=== PATIENT | male | born 1930 | race Caucasian/White ===

== ENCOUNTER 2016-03-20 03:52 | Emergency (ER) | payer MEDICARE, BC ==
--- NOTE | 2016-03-20 04:38 | ERNOTE ---
Abdominal HPI - Narrative Date of Service: 03/20/16 - General Chief Complaint: Abdominal Pain Time Seen by Provider: 03/20/16 04:24 Source: patient Exam Limitations: no limitations - POOR HISTORIAN - Immun/Allergies/Home Medications Immunizatons: IMMUNIZATION HX Immunizations Up to Date Yes History of Influenza Vaccine No Hx Pneumococcal Vaccination No Allergies/Adverse Reactions: Allergies No Known Allergies Allergy (Verified 03/20/16 04:05) Home Medications: HOME MEDICATIONS Amiodarone HCl [Pacerone] 200 mg PO Q2D 07/16/12 [Last Taken Unknown] Levothyroxine Sodium [Synthroid] 50 mcg PO DAILY 07/16/12 [Last Taken 07/16/12 0700] Bisacodyl [Laxative] 5 mg PO DAILY 11/07/15 [Last Taken Unknown] LORazepam [Ativan] 0.5 mg PO DAILY 11/07/15 [Last Taken Unknown] Loratadine [Claritin] 10 mg PO DAILY 11/07/15 [Last Taken Unknown] Lurasidone HCl [Latuda] 10 mg PO DAILY 11/07/15 [Last Taken Unknown] - History of Present Illness Narrative: 85-year-old with a known large ventral and umbilical hernia states that it has been hurting since about 11:00 last evening. He denies nausea vomiting diarrhea fever or other constitutional signs or symptoms Review of Systems - Review of Systems Constitutional: Present: no symptoms reported EYE: Present: no symptoms reported ENT: Present: no symptoms reported Respiratory: Present: no symptoms reported Cardiology: Present: no symptoms reported Gastrointestinal/Abdominal: Present: See HPI Genitourinary: Present: no symptoms reported Musculoskeletal: Present: no symptoms reported Skin: Present: no symptoms reported Neurological: Present: no symptoms reported Endocrine: Present: no symptoms reported Hematologic/Lymphatic: Present: no symptoms reported Psych: Present: no symptoms reported - Patient's Past Medical History Patient History - Medical: Depression, Hypothyroidism Patient History - Cardiac/Respiratory: Other - on amiodarone Patient History - Cancer: No Hx of Cancer Patient History - Surgical Procedures: Colon Resection, T & A - Social History Living Situations: home Smoking Status: Never smoker Alcohol Use: none Drug Use: none Physical Exam - Physical Exam General Appearance: Present: alert, mild distress Eye Exam: Normal inspection: bilateral, PERRL: bilateral Ears, Nose, Throat: Present: normal ENT inspection, hearing grossly normal, normal pharynx Neck: Present: normal inspection, nontender Respiratory: Present: no respiratory distress, normal breath sounds, no accessory muscle use, chest nontender, lungs clear Cardiovascular/Chest: Present: regular rate, rhythm, no murmur, normal peripheral pulses Gastrointestinal/Abdominal: Present: normal bowel sounds, nontender, soft, no organomegaly, tenderness - minimal tenderness to palpation of hernias. They are not taught and are reducible, hernia - very large LRQ abdominal hernia which is soft and reducible. Umbilical hernea also reducible Rectal Exam: Present: deferred Back Exam: Present: normal inspection, normal range of motion, no CVA tenderness , no vertebral tenderness Extremity Exam: Present: normal inspection, non-tender, no edema, normal range of motion Neurological Exam: Present: alert, oriented, normal mood/affect, no motor/ sensory deficits Skin Exam: Present: normal color, warm/dry Lymphatic Exam: Present: no adenopathy ED Progress - Results and Orders Patient's Lab Results:: I have reviewed the patient's lab results. Results and Orders: CBC and chemistries unremarkable - Vital Signs Patient's Vital Signs:: I have reviewed the patient's vital signs. Vital Signs: Vital Signs 03/20/16 04:00 Temperature 36.6 C Pulse Rate 48 L Respiratory 18 Rate Blood Pressure 138/74 O2 Sat by Pulse 99 Oximetry - X-Ray X-Ray #1 X-Ray: abdomen - nonspecific gas patterns with no evidence of obstruction - Progress/Reassessment Chief Complaint: Abdominal Pain Plan - Plan Plan: Lab and x-ray essentially unremarkable but patient continues to have pain in the area of the large ventral hernia and he has developed nausea and vomiting. Patient was given fluids IV Zofran and we will move ahead with CT of the abdomen with contrast 8:25 AM patient is more comfortable and CT report shows the large ventral hernia but no evidence of obstruction. We'll have the patient follow up with his primary care provider to discuss the need for surgical repair of this large hernia that is now more symptomatic Departure - Departure Clinical Impression: Abdominal hernia Qualifiers: Hernia type: ventral Obstruction and gangrene presence: without obstruction or gangrene Qualified Code(s): K43.9 - Ventral hernia without obstruction or gangrene Umbilical hernia Qualifiers: Obstruction and gangrene presence: without obstruction or gangrene Qualified Code(s): K42.9 - Umbilical hernia without obstruction or gangrene Disposition: Home self-care Condition: Fair Instructions: Ventral Hernia Additional Instructions: Make an appointment with your doctor to discuss repair of the large abdominal hernia which is now symptomatic Referrals: Erik Medina MD [Primary Care Provider] -
[2016-03-20 04:53] LABS: Hematocrit 37.7 % (42.0-52.0); Hemoglobin 12.6 gm/dL (13.5-18.0); Mean Cell Volume 94.7 fl (78-100); Mean Corpuscular Hemoglobin 31.7 pg (27-31); Mean Corpuscular Hgb Conc 33.4 g/dl (32-36); Mean Platelet Volume 9.8 fl (6.0-9.5); Neutrophil # 6.4 K/mm3 (1.3-6.0); Platelet Count 201 K/mm3 (150-450); Red Blood Count 3.98 M/mm3 (4.7-6.0); Red Cell Distribution Width 13.3 % (11.5-14.0); White Blood Count 8.2 K/mm3 (4.0-10.5)
[2016-03-20] MEDS ORDERED: ONDANSETRON HCL/PF 2 MG/ML VIAL ONE (04:57)
[2016-03-20] MEDS ORDERED: ONDANSETRON HCL/PF 2 MG/ML VIAL IV ONE (05:04)
[2016-03-20] MEDS ORDERED: NORMAL SALINE 1,000 ML IV ONE (05:05)
[2016-03-20 05:07] LABS: Albumin * 3.6 gm/dl (3.4-5.0); Anion Gap 14.5 mmol/L (6.8-13.8); BUN/Creatinine Ratio 21.7 (9.0-21.6); Bilirubin, Total 0.2 mg/dL (0.0-1.1); Ca. Corrected For Albumin 8.6 mg/dL (8.4-10.2); Calcium * 8.6 mg/dL (7.9-10.9); Carbon Dioxide 27.4 mmol/L (24-32.6); Potassium 3.9 mmol/L (3.4-4.6); Total Protein 6.5 gm/dL (6.2-8.2)
[2016-03-20] MEDS ORDERED: DIATRIZOATE MEGLU/DIATRIZO SOD 30 ML BTL ONE (05:33)
[2016-03-20] MEDS ORDERED: MORPHINE SULFATE 2 MG/ML DISP.SYRIN IV ONE (05:36)
[2016-03-20] MEDS ORDERED: DIATRIZOATE MEGLU/DIATRIZO SOD 30 ML BTL PO ONE (05:37)
[2016-03-20] MEDS ORDERED: MORPHINE SULFATE 2 MG/ML DISP.SYRIN ONE (05:42)
[2016-03-20 08:35] VITALS: BP 171/84
== END 2016-03-20 08:40 | disposition home or self-care (01) ==
LOC: ER 03:52
DX: K43.9 Ventral hernia without obstruction or gangrene (principal); K42.9 Umbilical hernia without obstruction or gangrene

== ENCOUNTER 2020-07-30 20:11 | Observation (INO) ==
[2020-07-30] MEDS ORDERED: ACETAMINOPHEN 1,000 MG/100 ML BTL IV ONE (20:23)
--- NOTE | 2020-07-30 20:29 | ERNOTE ---
Medical Problem HPI - Narrative Date of Service: 07/30/20 - General Chief Complaint: Fever Time Seen by Provider: 07/30/20 20:19 Source: patient, family Exam Limitations: clinical condition - Immun/Allergies/Home Medications Immunizations: IMMUNIZATION HX Immunizations Up to Date Yes History of Influenza Vaccine Yes Hx Pneumococcal Vaccination No Allergies/Adverse Reactions: Allergies No Known Allergies Allergy (Verified 07/30/20 17:37) Home Medications: HOME MEDICATIONS cholecalciferol (vitamin D3) 50 mcg (2,000 unit) capsule 2,000 unit PO DAILY 01/03/18 [Last Taken Unknown] cyanocobalamin (vitamin B-12) 1,000 mcg tablet 1,000 mcg PO DAILY 01/03/18 [Last Taken Unknown] polyethylene glycol 3350 17 gram/dose oral powder 17 g PO DAILY g 01/03/18 [Last Taken Unknown] Durable Medical Equipment See Dose Instructions .ROUTE .MEDSUPPLY #1 ea 08/21/18 [Last Taken Unknown] Durable Medical Equipment See Dose Instructions .ROUTE .MEDSUPPLY #1 ea 08/21/18 [Last Taken Unknown] multivitamin with minerals 1 tab PO DAILY 08/27/18 [Last Taken Unknown] levothyroxine 75 mcg tablet 75 mcg PO DAILY #90 tab 05/26/20 [Last Taken Unknown] sulfamethoxazole 800 mg-trimethoprim 160 mg tablet 1 tab PO BID 10 Days #20 tab 07/30/20 [Last Taken Unknown] Amiodarone HCl See Rx Instructions PO 3XW 07/31/20 [Last Taken Unknown] Tamsulosin HCl [Flomax] 0.4 mg PO DAILY 07/31/20 [Last Taken Unknown] - Pain Score Pain Score #1 Pain Score: 6 - History of Present History Narrative: The patient is an 89-year-old male who presents via POV for right hand cellulitis which has been present since this morning. There are associated symptoms of increased lethargy and fever. The patient reports pain to right hand, /. There are no alleviating factors. There are aggravating factors of activity and hand use. Previous treatments have included: Bactrim without improvement. The past medical history includes: AFib, BPH, hypothyroid and GEE. Patient social history is positive for current tobacco use. The patient has had no known ill contacts. Patient presented to the [facility] today for evaluation of redness to his right hand. Patient was diagnosed with cellulitis and given prescription for Bactrim which patient has taken 1 dose today. Family noted patient to have increased lethargy as well as shaking so they brought him to the ER for further evaluation. Patient upon arrival is noted to have elevated fever. Review of Systems - Review of Systems Constitutional: Present: fever, chills, fatigue EYE: Present: no symptoms reported ENT: Present: no symptoms reported. Absent: ear pain, nasal drainage, sore throat Respiratory: Present: no symptoms reported. Absent: shortness of breath, cough Cardiology: Present: no symptoms reported. Absent: chest pain Gastrointestinal/Abdominal: Present: no symptoms reported. Absent: nausea, vomiting, diarrhea Genitourinary: Present: no symptoms reported. Absent: dysuria Musculoskeletal: Present: joint pain Skin: Present: lesions Neurological: Present: no symptoms reported Medical History (Last Reviewed 07/30/20 @ 20:26 by ELROY Guerrier) Impaired cognition (Acute) Cough (Acute) BPH (benign prostatic hyperplasia) (Chronic) Abnormal PSA (Acute) PSA 4.33 Dependent edema (Acute) Medicare annual wellness visit, subsequent (Acute) History of pneumonia as indication for 23-polyvalent pneumococcal polysaccharide vaccine (Acute) Ventral hernia (Resolved) Onset Date: Unknown GEE (obstructive sleep apnea) (Chronic) Onset Date: Unknown Hypothyroidism (Chronic) Onset Date: Unknown BPH (benign prostatic hyperplasia) (Chronic) Onset Date: Unknown Vitamin B12 deficiency (Chronic) Onset Date: Unknown Age-related macular degeneration (Chronic) Onset Date: Unknown Atrial fibrillation (Chronic) Onset Date: Unknown Orthostatic hypotension (Acute) Near syncope (Acute) Abdominal hernia (Acute) Umbilical hernia (Acute) Surgical History: Surgical History (Last Reviewed 07/30/20 @ 20:26 by ELROY Guerrier) History of colon resection Onset Date: ~2012 History of tonsillectomy Onset Date: Unknown Family History: Family History (Last Reviewed 07/30/20 @ 20:26 by ELROY Guerrier) Father , age 65 Cancer unknown type Heart disease Mother , age 98 Old age Social History: (Last Reviewed 07/30/20 @ 20:27 by ELROY Guerrier) Social History: senior care: No Marital status: household members: spouse current occupational status: retired Highest level of school completed/degree received: high school graduate Service: No Tobacco: Smoking Status: Current every day smoker second hand exposure: Yes Alcohol: alcohol intake: current Substance Use: substance use type: does not use Dietary Habits: caffeine: Yes Exercise: Physical activity functional status: normal ROM and activity Physical Exam - Physical Exam General Appearance: Present: wd/wn, mild distress, lethargic Head Exam: Present: normal inspection, no evidence of injury Eye Exam: Normal inspection: bilateral Neck: Present: normal inspection Respiratory: Present: no respiratory distress, normal breath sounds, no accessory muscle use, lungs clear Cardiovascular/Chest: Present: regular rate, rhythm, no murmur Extremity Exam: Present: normal range of motion. Absent: bony tenderness Neurological Exam: Present: alert, oriented, normal mood/affect, no motor/sensory deficits Skin Exam: Present: warm/dry, other - erythema to dorsal right hand extension from dorsal thumb to wrist Progress - Date and Time Seen: Date and Time: 07/30/20 21:39 Patient fever improved but remains to be lethargic. Patient does awaken easily with stimuli. After joint discussion with family they would feel more comfortable with patient was admitted for continued observation due to elevated fever and increased weakness. Case was reviewed with and will admit for observation for cellulitis. Patient agrees with plan of care. - Results and Orders Patient's Lab Results:: I have reviewed the patient's lab results. - Vital Signs Patient's Vital Signs:: I have reviewed the patient's vital signs. Vital Signs: Vital Signs 07/30/20 20:18 Temperature 39.8 C H Pulse Rate 96 Respiratory Rate 18 Blood Pressure 172/73 H O2 Sat by Pulse Oximetry 97 - Progress/Reassessment Chief Complaint: Fever Progress:: Improved Departure Clinical Impression: Cellulitis of hand, right - Departure Disposition: Still a patient Condition: Good
[2020-07-30 20:49] LABS: Hematocrit 40.6 % (42.0-52.0); Hemoglobin 12.9 gm/dL (13.5-18.0); Mean Cell Volume 96.2 fl (78-100); Mean Corpuscular Hemoglobin 30.6 pg (27-31); Mean Corpuscular Hgb Conc 31.8 g/dl (32-36); Neutrophil # 9.2 K/mm3 (1.3-6.0); Neutrophil % 84.2 % (42-75.0); Platelet Count 166 K/mm3 (150-450); Red Blood Count 4.22 M/mm3 (4.7-6.0); Red Cell Distribution Width 13.2 % (11.5-14.0)
[2020-07-30 20:58] LABS: Albumin * 3.5 gm/dl (3.4-5.0); BUN/Creatinine Ratio 15.3 (9.0-21.6); CRP 5.5 mg/dL (0.0-0.9); Ca. Corrected For Albumin 8.4 mg/dL (8.4-10.2); Calcium * 8.3 mg/dL (7.9-10.9); Carbon Dioxide 26.7 mmol/L (24-32.6); Potassium 3.7 mmol/L (3.4-4.6); Total Protein 6.5 gm/dL (6.2-8.2)
[2020-07-30] MEDS ORDERED: cefTRIAXone SODIUM 1,000 MG/100 ML BAG IV ONE (21:03)
[2020-07-31] MEDS ORDERED: CYANOCOBALAMIN 1,000 MCG TABLET PO SCH (09:30)
[2020-07-31] MEDS ORDERED: MULTIVITAMIN/IRON/FOLIC ACID 1 TAB TABLET PO SCH (09:30)
--- NOTE | 2020-07-31 09:37 | HPDIS ---
Chief Complaint - Chief Complaint Date of Service: 07/31/20 Time of Service: 09:00 Chief Complaint: Fever History of Present Illness: 89-year-old male with a past medical history of atrial fibrillation, BPH, macular degeneration, GEE on CPAP, umbilical hernia, hypothyroidism, impaired cognition, B12 deficiency presents from home with complaints of weakness and lethargy. He had been seen in the walk-in clinic yesterday for right hand cellulitis and was started on Bactrim. Patient returned home and family stated that he was more lethargic and weak and brought him to the emergency room. He had only taken 1 dose of the Bactrim prior to presenting to the ER. In the ER he was found to have a fever with temperature of 39.8 C, mild elevation in WBCs of 11, rest of lab work was unremarkable. He was started on ceftriaxone IV. He was admitted for further management of cellulitis. Medical History (Last Reviewed 07/30/20 @ 20:41 by Kaykay Gray RN) Impaired cognition (Acute) Cough (Acute) BPH (benign prostatic hyperplasia) (Chronic) Abnormal PSA (Acute) PSA 4.33 Dependent edema (Acute) Medicare annual wellness visit, subsequent (Acute) History of pneumonia as indication for 23-polyvalent pneumococcal polysaccharide vaccine (Acute) Ventral hernia (Resolved) Onset Date: Unknown GEE (obstructive sleep apnea) (Chronic) Onset Date: Unknown Hypothyroidism (Chronic) Onset Date: Unknown BPH (benign prostatic hyperplasia) (Chronic) Onset Date: Unknown Vitamin B12 deficiency (Chronic) Onset Date: Unknown Age-related macular degeneration (Chronic) Onset Date: Unknown Atrial fibrillation (Chronic) Onset Date: Unknown Orthostatic hypotension (Acute) Near syncope (Acute) Abdominal hernia (Acute) Umbilical hernia (Acute) Surgical History: Surgical History (Last Reviewed 07/30/20 @ 20:41 by Kaykay Gray RN) History of colon resection Onset Date: ~2012 History of tonsillectomy Onset Date: Unknown Family History: Family History (Last Reviewed 07/30/20 @ 20:41 by Kaykay Gray RN) Father , age 65 Heart disease Cancer unknown type Mother , age 98 Old age Social History: (Last Reviewed 07/30/20 @ 20:41 by Kaykay Gray RN) Social History: group home: No Marital status: household members: spouse current occupational status: retired Highest level of school completed/degree received: high school graduate Service: No Tobacco: Smoking Status: Current every day smoker second hand exposure: Yes Alcohol: alcohol intake: current Substance Use: substance use type: does not use Dietary Habits: caffeine: Yes Exercise: Physical activity functional status: normal ROM and activity Review Of Systems (GEN) - Review of Systems Generalized/Overall Review: Present: Fever Cardiac: Absent: Chest Pain Abdominal: Absent: Abdominal Pain Skin: Present: Other - Erythema over right hand and forearm. Mildly edematous and tender to palpation Misc: All systems neg except as marked Immunizations: IMMUNIZATION HX Immunizations Up to Date Yes History of Influenza Vaccine Yes Hx Pneumococcal Vaccination No Allergies/Adverse Reactions: Allergies Allergy/AdvReac Type Severity Reaction Status Date / Time No Known Allergies Allergy Verified 07/30/20 17:37 Home Medications: HOME MEDICATIONS cholecalciferol (vitamin D3) 50 mcg (2,000 unit) capsule 2,000 unit PO DAILY 01/03/18 [Last Taken Unknown] cyanocobalamin (vitamin B-12) 1,000 mcg tablet 1,000 mcg PO DAILY 01/03/18 [Last Taken Unknown] polyethylene glycol 3350 17 gram/dose oral powder 17 g PO DAILY g 01/03/18 [Last Taken Unknown] Durable Medical Equipment See Dose Instructions .ROUTE .MEDSUPPLY #1 ea 08/21/18 [Last Taken Unknown] Durable Medical Equipment See Dose Instructions .ROUTE .MEDSUPPLY #1 ea 08/21/18 [Last Taken Unknown] multivitamin with minerals 1 tab PO DAILY 08/27/18 [Last Taken Unknown] levothyroxine 75 mcg tablet 75 mcg PO DAILY #90 tab 05/26/20 [Last Taken Unknown] sulfamethoxazole 800 mg-trimethoprim 160 mg tablet 1 tab PO BID 10 Days #20 tab 07/30/20 [Last Taken Unknown] Amiodarone HCl See Rx Instructions PO 3XW 07/31/20 [Last Taken Unknown] Tamsulosin HCl [Flomax] 0.4 mg PO DAILY 07/31/20 [Last Taken Unknown] Exam - Exam Vital Signs: Vital Signs - Last Taken Temp 37.9 C 07/31/20 06:58 Pulse 70 07/31/20 06:58 Resp 16 07/31/20 06:58 BP 100/54 07/31/20 06:58 Pulse Ox 95 07/31/20 08:47 Constitutional: Present: Alert, Cooperative, Well developed, Well nourished, No distress, Elderly ENT Exam: Present: hard of hearing, dry mucous membranes Eye Exam: bilateral eye: EOMI Neck: Present: non-tender, supple. Absent: lymphadenopathy (R), lymphadenopathy (L) Abdomen: Present: Normal bowel sounds, soft, nontender, obese, other - Umbilical hernia, nontender, reducible Extremity: Present: non-tender, pedal edema - Trace pitting edema in right lower extremity Skin Exam: Present: other - Erythema over right hand and forearm. Mildly e dematous and tender to palpation Neurologic: Present: alert, normal mood/affect, oriented x 3 Appearance: Present: appropriate appearance, appropriate insight Eye contact: Present: cooperative Thoughts: Present: normal thought pattern, normal mood /affect Diagnostic Studies: Abnormal Lab Results 07/30/20 07/30/20 Range/Units 20:34 20:34 WBC 11.0 H (4.0-10.5) K/mm3 RBC 4.22 L (4.7-6.0) M/mm3 Hgb 12.9 L (13.5-18.0) gm/dL Hct 40.6 L (42.0-52.0) % MCHC 31.8 L (32-36) g/dl Immature Gran % (Auto) 0.60 H (0.001-0.429) % Immature Gran # (Auto) 0.07 H (0.000-0.0310) K/mm3 Neutrophils % 84.2 H (42-75.0) % Lymphocytes % 8.4 L (20-51) % Neutrophils # 9.2 H (1.3-6.0) K/mm3 Lymphocytes # 0.92 L (1.5-3.5) k/mm3 Anion Gap 14.0 H (6.8-13.8) mmol/L Random Glucose 118 H (70-110) mg/dL C-Reactive Prot, Quant 5.5 H (0.0-0.9) mg/dL Laboratory Results WBC 11.0 K/mm3 (4.0-10.5) H 07/30/20 20:34 RBC 4.22 M/mm3 (4.7-6.0) L 07/30/20 20:34 Hgb 12.9 gm/dL (13.5-18.0) L 07/30/20 20:34 Hct 40.6 % (42.0-52.0) L 07/30/20 20:34 MCV 96.2 fl (78-100) 07/30/20 20:34 MCH 30.6 pg (27-31) 07/30/20 20:34 MCHC 31.8 g/dl (32-36) L 07/30/20 20:34 RDW 13.2 % (11.5-14.0) 07/30/20 20:34 Plt Count 166 K/mm3 (150-450) 07/30/20 20:34 MPV 10.0 fl (8-11.3) 07/30/20 20:34 Immature Gran % (Auto) 0.60 % (0.001-0.429) H 07/30/20 20:34 Immature Gran # (Auto) 0.07 K/mm3 (0.000-0.0310) H 07/30/20 20:34 Neutrophils % 84.2 % (42-75.0) H 07/30/20 20:34 Lymphocytes % 8.4 % (20-51) L 07/30/20 20:34 Monocytes % 6.3 % (0.0-9) 07/30/20 20: Eosinophils % 0.1 % (0.0-3.0) 07/30/20 20: Basophils % 0.4 % (0.0-1.0) 07/30/20 20:34 Nucleated RBC % 0.0 k/mm3 (0-1) 07/30/20 20: Neutrophils # 9.2 K/mm3 (1.3-6.0) H 07/30/20 20:34 Lymphocytes # 0.92 k/mm3 (1.5-3.5) L 07/30/20 20: Monocytes # 0.7 k/mm3 (0.0-1.0) 07/30/20 20: Eosinophils # 0.0 k/mm3 (0.0-0.7) 07/30/20 20:34 Absolute Basophils 0.0 k/mm3 (0.0-0.1) 07/30/20 20:34 Sodium 140 mmol/L (132-142) 07/30/20 20:34 Plasma Sodium 140 mmol/L (130-142) 07/30/20 20:34 Potassium 3.7 mmol/L (3.4-4.6) 07/30/20 20:34 Chloride 103 mmol/L (97-106) 07/30/20 20:34 Carbon Dioxide 26.7 mmol/L (24-32.6) 07/30/20 20:34 Anion Gap 14.0 mmol/L (6.8-13.8) H 07/30/20 20:34 BUN 18 mg/dL (6-23) 07/30/20 20:34 Creatinine 1.18 mg/dL (0.4-1.4) 07/30/20 20:34 Est GFR (Non-Af Amer) 62 mL/min (60-130) 07/30/20 20:34 BUN/Creatinine Ratio 15.3 (9.0-21.6) 07/30/20 20:34 Random Glucose 118 mg/dL (70-110) H 07/30/20 20:34 Lactic Acid, Venous 1.8 mmol/L (0.4-2.0) 07/30/20 20:34 Calcium 8.3 mg/dL (7.9-10.9) 07/30/20 20:34 Calcium Adj for Albumin 8.4 mg/dL (8.4-10.2) 07/30/20 20:34 Total Bilirubin 1.0 mg/dL (0.0-1.1) 07/30/20 20:34 AST 16 U/L (0-48) 07/30/20 20:34 ALT 20 U/L (19-67) 07/30/20 20:34 Alkaline Phosphatase 75 U/L (50-170) 07/30/20 20:34 C-Reactive Prot, Quant 5.5 mg/dL (0.0-0.9) H 07/30/20 20:34 Total Protein 6.5 gm/dL (6.2-8.2) 07/30/20 20:34 Albumin 3.5 gm/dl (3.4-5.0) 07/30/20 20:34 SARS-CoV-2 (PCR) Not detected (NotDetected) 07/30/20 21:37 Assessment/Plan - Narrative Narrative: 89-year-old male with a past medical history of atrial fibrillation, BPH, macular degeneration, GEE on CPAP, umbilical hernia, hypothyroidism, impaired cognition, B12 deficiency presents from home with complaints of weakness and lethargy. He had been seen in the walk-in clinic yesterday for right hand cellulitis and was started on Bactrim. Patient returned home and family stated that he was more lethargic and weak and brought him to the emergency room. He had only taken 1 dose of the Bactrim prior to presenting to the ER. In the ER he was found to have a fever with temperature of 39.8 C, mild elevation in WBCs of 11, rest of lab work was unremarkable. He was started on ceftriaxone IV. He was admitted for further management of cellulitis. He is afebrile this morning. The erythema on his right upper extremity is diminished and not spreading. His right hand is mildly tender to palpation. He is alert and oriented x3. He is hard of hearing and does not have his hearing aids in still communicating is little difficult. I will order physical therapy to evaluate his gait today. If he does well with physical therapy he will be discharged later today on oral Bactrim. He can follow-up with his primary care physician in the next 1 to 2 weeks. Plan #1 transition to oral Bactrim #2 physical therapy #3 resume home medications for comorbidities #4 discharge planning - Assessment/Plan (1) Cellulitis of hand, right Problem: Acute (2) Impaired cognition Problem: Chronic (3) GEE (obstructive sleep apnea) Problem: Chronic (4) Hypothyroidism Problem: Chronic Qualifiers: Hypothyroidism type: acquired Qualified Code(s): E03.9 - Hypothyroidism, unspecified (5) BPH (benign prostatic hyperplasia) Problem: Chronic Qualifiers: Lower urinary tract symptom presence: symptoms present Lower urinary tract symptom detail: weak urinary stream Qualified Code(s): N40.1 - Benign prostatic hyperplasia with lower urinary tract symptoms; R39.12 - Poor urinary stream (6) Vitamin B12 deficiency Problem: Chronic (7) Atrial fibrillation Problem: Chronic Qualifiers: Atrial fibrillation type: longstanding persistent Qualified Code(s): I48.11 - Longstanding persistent atrial fibrillation (8) Umbilical hernia Problem: Chronic Qualifiers: Obstruction and gangrene presence: without obstruction or gangrene Qualified Code(s): K42.9 - Umbilical hernia without obstruction or gangrene (1) Cellulitis of hand, right Problem: Acute (2) Impaired cognition Problem: Acute (3) GEE (obstructive sleep apnea) Problem: Chronic (4) Hypothyroidism Problem: Chronic Qualifiers: Hypothyroidism type: acquired Qualified Code(s): E03.9 - Hypothyroidism, unspecified (5) BPH (benign prostatic hyperplasia) Problem: Chronic Qualifiers: Lower urinary tract symptom presence: symptoms present Lower urinary tract symptom detail: weak urinary stream Qualified Code(s): N40.1 - Benign prostat ic hyperplasia with lower urinary tract symptoms; R39.12 - Poor urinary stream (6) Vitamin B12 deficiency Problem: Chronic (7) Atrial fibrillation Problem: Chronic Qualifiers: Atrial fibrillation type: longstanding persistent Qualified Code(s): I48.11 - Longstanding persistent atrial fibrillation (8) Umbilical hernia Problem: Acute Qualifiers: Obstruction and gangrene presence: without obstruction or gangrene Qualified Code(s): K42.9 - Umbilical hernia without obstruction or gangrene Hospital Course: 89-year-old male with a past medical history of atrial fibrillation, BPH, macular degeneration, GEE on CPAP, umbilical hernia, hypothyroidism, impaired cognition, B12 deficiency presents from home with complaints of weakness and lethargy. He had been seen in the walk-in clinic yesterday for right hand cellulitis and was started on Bactrim. Patient returned home and family stated that he was more lethargic and weak and brought him to the emergency room. He had only taken 1 dose of the Bactrim prior to presenting to the ER. In the ER he was found to have a fever with temperature of 39.8 C, mild elevation in WBCs of 11, rest of lab work was unremarkable. He was started on ceftriaxone IV. He was admitted for further management of cellulitis. He is afebrile this morning. The erythema on his right upper extremity is diminished and not spreading. His right hand is mildly tender to palpation. He is alert and oriented x3. He is hard of hearing and does not have his hearing aids in still communicating is little difficult. I will order physical therapy to evaluate his gait today. If he does well with physical therapy he will be discharged later today on oral Bactrim. He can follow-up with his primary care physician in the next 1 to 2 weeks. Total time spent at time of discharge, 34 minutes spent discharging the patient, greater than 50% of the time was spent counseling about diagnosis, discussing the plan, filling out discharge instructions, completing medication reconciliation and coordination of care. Procedures Performed: none Results and Findings: Lab Pending Results 07/30/20 20:34: WBC 11.0 H, RBC 4.22 L, Hgb 12.9 L, Hct 40.6 L, MCV 96.2, MCH 30.6, MCHC 31.8 L, RDW 13.2, Plt Count 166, MPV 10.0, Immature Gran % (Auto) 0.60 H, Immature Gran # (Auto) 0.07 H, Neutrophils % 84.2 H, Lymphocytes % 8.4 L, Monocytes % 6.3, Eosinophils % 0.1, Basophils % 0.4, Nucleated RBC % 0.0, Neutrophils # 9.2 H, Lymphocytes # 0.92 L, Monocytes # 0.7, Eosinophils # 0.0, Absolute Basophils 0.0 07/30/20 20:34: Sodium 140, Plasma Sodium 140, Potassium 3.7, Chloride 103, Carbon Dioxide 26.7, Anion Gap 14.0 H, BUN 18, Creatinine 1.18, Est GFR (Non-Af Amer) 62, BUN/Creatinine Ratio 15.3, Random Glucose 118 H, Calcium 8.3, Calcium Adj for Albumin 8.4, Total Bilirubin 1.0, AST 16, ALT 20, Alkaline Phosphatase 75, C-Reactive Prot, Quant 5.5 H, Total Protein 6.5, Albumin 3.5 07/30/20 20:34: Lactic Acid, Venous 1.8 07/30/20 21:37: SARS-CoV-2 (PCR) Not detected Discharge Location: Home Disposition: Home self-care Condition: Good Discharge Activity: Activity as tolerated Discharge Diet: General/regular food Referrals: Ana Fowler DO [Primary Care Provider] - Complete Home Medications List: Complete Home Medication List: cholecalciferol (vitamin D3) 50 mcg (2,000 unit) capsule 2,000 unit PO DAILY 01/03/18 cyanocobalamin (vitamin B-12) 1,000 mcg tablet 1,000 mcg PO DAILY 01/03/18 polyethylene glycol 3350 17 gram/dose oral powder 17 g PO DAILY g 01/03/18 Durable Medical Equipment See Dose Instructions .ROUTE .MEDSUPPLY #1 ea 08/21/18 Durable Medical Equipment See Dose Instructions .ROUTE .MEDSUPPLY #1 ea 08/21/18 multivitamin with minerals 1 tab PO DAILY 08/27/18 levothyroxine 75 mcg tablet 75 mcg PO DAILY #90 tab 05/26/20 sulfamethoxazole 800 mg-trimethoprim 160 mg tablet 1 tab PO BID 10 Days #20 tab 07/30/20 Amiodarone HCl See Rx Instructions PO 3XW 07/31/20 Tamsulosin HCl [Flomax] 0.4 mg PO DAILY 07/31/20
[2020-07-31] MEDS ORDERED: ACETAMINOPHEN 325 MG TABLET PO PRN (09:42)
[2020-07-31 12:27] VITALS: BP 104/47
[2020-07-31] MEDS ORDERED: SULFAMETHOXAZOLE/TRIMETHOPRIM 1 TAB TABLET PO SCH (21:00)
[2020-08-01] MEDS ORDERED: LEVOTHYROXINE SODIUM 75 MCG TABLET PO SCH (07:00)
[2020-08-01] MEDS ORDERED: POLYETHYLENE GLYCOL 3350 17 GM PACKET PO SCH (09:00)
[2020-08-01] MEDS ORDERED: TAMSULOSIN HCL 0.4 MG CAP.SR.24H PO SCH (09:00)
== END 2020-07-31 13:43 | disposition home or self-care (01) ==
LOC: MS 20:11 → ER 20:11 → MS 07-31 00:28
PROVIDERS: ADMIT Family Medicine; ATTEND Family Medicine
DX: G47.33 Obstructive sleep apnea (adult) (pediatric); Z72.0 Tobacco use; K42.9 Umbilical hernia without obstruction or gangrene; R39.12 Poor urinary stream; L03.113 Cellulitis of right upper limb; R50.9 Fever, unspecified; I48.11 Longstanding persistent atrial fibrillation; R41.89 Other symptoms and signs involving cognitive functions and awareness; N40.1 Benign prostatic hyperplasia with lower urinary tract symptoms; E03.9 Hypothyroidism, unspecified